=== PATIENT | female | born 1955 | race Caucasian/White ===

== ENCOUNTER → 2021-04-10 | Outpatient (CLI) | payer OTHER ==
[~2021-04-10] MED LIST: ADVIL200 MG PO; COQ-10100 MG PO; HYDROCODONE-AC1 EACH PO; ISOSORBIDE MONO30 MG PO; LORATADINE10 MG PO; METOPROLOL TART25 MG PO; PENICILLIN V P500 MG PO; POTASSIUM CHLO10 ME1 PO; PROBIOTIC PO; PROTONIX40 MG PO; PROVENTIL HFA6.7 GM INH; TOLTERODINE TART2 M1 PO; TRIAMTERENE-HC1 EAC1 PO; VITAMIN B12 PO; XANAX0.5 MG PO; ZINC50 M3 PO
[2021-04-10 12:14] LABS: HEMOGLOBIN 14.8 gm/dl (12.3-15.3); RED BLOOD COUNT 4.96 M/UL (4.00-5.10); WHITE BLOOD COUNT 8.8 K/UL (4.5-11.0)
== END ==
LOC: OPSV2 11:00
PROVIDERS: Orthopaedic Surgery
DX: Z01.818 Encounter for other preprocedural examination (principal); L72.8 Other follicular cysts of the skin and subcutaneous tissue
CPT/HCPCS: 36415; 80048; 85025; 93005

== ENCOUNTER → 2021-04-17 | Day surgery (SDC) | payer OTHER ==
[~2021-04-17] VITALS: Ht 172.7 cm; Wt 122.9 kg
== END | disposition home or self-care (01) ==
LOC: OR 04:42
DX: M71.332 Other bursal cyst, left wrist (principal); I11.9 Hypertensive heart disease without heart failure; E78.5 Hyperlipidemia, unspecified; I25.10 Atherosclerotic heart disease of native coronary artery without angina pectoris; J44.9 Chronic obstructive pulmonary disease, unspecified; E11.9 Type 2 diabetes mellitus without complications; G47.30 Sleep apnea, unspecified; K21.9 Gastro-esophageal reflux disease without esophagitis; M19.90 Unspecified osteoarthritis, unspecified site; I25.2 Old myocardial infarction; F17.210 Nicotine dependence, cigarettes, uncomplicated; Z53.9 Procedure and treatment not carried out, unspecified reason; Z79.1 Long term (current) use of non-steroidal anti-inflammatories (NSAID); Z79.2 Long term (current) use of antibiotics; Z79.899 Other long term (current) drug therapy; Z88.5 Allergy status to narcotic agent; Z88.8 Allergy status to other drugs, medicaments and biological substances; Z88.1 Allergy status to other antibiotic agents; Z20.822 Contact with and (suspected) exposure to COVID-19; Z90.49 Acquired absence of other specified parts of digestive tract; Z96.642 Presence of left artificial hip joint
CPT/HCPCS: 82962; J7030

== ENCOUNTER → 2022-02-15 | Outpatient (CLI) | payer OTHER | LOC: CT 10:17 | DX: K46.9 Unspecified abdominal hernia without obstruction or gangrene (principal); K76.0 Fatty (change of) liver, not elsewhere classified | CPT/HCPCS: 36415; 82565; Q9967 ==